=== PATIENT | female | born 1995 | race Two or more races ===

== ENCOUNTER 2016-06-02 11:12 | Emergency (ER) | payer SELFPAY ==
[~2016-06-02] VITALS: Ht 147.3 cm; Wt 47.2 kg
[2016-06-02 11:28] VITALS: BP 106/63
[2016-06-02] MEDS ORDERED: PHENAZOPYRIDINE HCL 100 MG TAB PO ONE (12:00)
[2016-06-02] MEDS ORDERED: cefTRIAXone SOD 1,000 MG VL IM ONE (12:00)
== END 2016-06-02 12:46 | disposition home or self-care (01) ==
LOC: ER 11:29
DX: N39.0 Urinary tract infection, site not specified (principal)
CPT/HCPCS: 81025; 96372; 99283; J0696

== ENCOUNTER 2019-01-03 03:10 | Observation (INO) | payer MEDICAID ==
[~2019-01-03] VITALS: Ht 149.9 cm; Wt 56.8 kg
[2019-01-03 03:18] VITALS: BP 127/82
[2019-01-03 05:00] LABS: Basophils # (auto) 0 uL; Basophils % (auto) 0.4 % (0.0-2.0); Eosinophils # (auto) 0.1 uL; Eosinophils % (auto) 0.8 % (0.0-7.0); Hematocrit 34.4 % (36.0-46.0); Hemoglobin 11.7 g/dL (12.2-16.2); Lymphocytes # (auto) 0.9 uL; Lymphocytes % (auto) 14.3 % (10.0-50.0); Mean Corpuscular Hemoglobin 28.1 pg (28.0-32.0); Mean Corpuscular Volume 82.8 fL (80.0-100.0); Monocytes # (auto) 0.6 uL; Neutrophils # (auto) 4.8 uL; Neutrophils % (auto) 75.5 % (37.0-80.0); Platelet Count (auto) 202 10^3/uL (140-450); Red Blood Cells 4.16 10^6/uL (4.0-5.20); Red Cell Distribution Width 14.6 % (11.8-14.3); White Blood Cell 6.3 10^3/uL (4.4-10.8)
[2019-01-03 05:17] LABS: Albumin 2.7 g/dL (3.4-5.0); BUN/Creatinine Ratio 14.7; Calcium 8.1 mg/dL (8.5-10.1); Potassium 3.5 mmol/L (3.5-5.1)
[2019-01-03 05:20] LABS: Bilirubin, Total 0.2 mg/dL (0.2-1.0); Total Protein 5.9 g/dL (6.4-8.2)
[2019-01-03] MEDS ORDERED: TERBUTALINE SULFATE 1 MG/ML 1ML VIAL SC ONE (05:45)
== END 2019-01-03 08:20 | disposition home or self-care (01) | DRG 566 ==
LOC: ER 03:14 → LDRP 03:15
PROVIDERS: ADMIT Obstetrics & Gynecology; ATTEND Obstetrics & Gynecology
DX: O26.853 Spotting complicating pregnancy, third trimester (principal); O26.86 Pruritic urticarial papules and plaques of pregnancy (PUPPP); Z3A.29 29 weeks gestation of pregnancy
CPT/HCPCS: 36415; 59025; 76815; 80053; 81002; 85025; 96372; 99284; G0378; J3105